=== PATIENT | male | born 1975 | race African-American/Black ===

== ENCOUNTER 2017-12-30 09:08 | Emergency (ER) | payer MEDICAID, OTHER ==
[~2017-12-30] VITALS: Ht 167.6 cm; Wt 91.0 kg
[2017-12-30 11:00] VITALS: BP 141/97
== END 2017-12-30 11:02 | disposition home or self-care (01) ==
LOC: ER 10:38
DX: M77.8 Other enthesopathies, not elsewhere classified (principal); M79.631 Pain in right forearm; X50.0XXA Overexertion from strenuous movement or load, initial encounter; Y93.89 Activity, other specified; Y92.89 Other specified places as the place of occurrence of the external cause; Y99.0 Civilian activity done for income or pay
CPT/HCPCS: 73030; 99284

== ENCOUNTER 2021-09-04 04:05 | Emergency (ER) | payer MEDICAID, OTHER ==
[~2021-09-04] VITALS: Ht 170.2 cm; Wt 95.0 kg
[2021-09-04 04:58] VITALS: BP 168/88
[2021-09-04] MEDS ORDERED: NAPR-681 PO (06:58)
== END 2021-09-04 07:17 | disposition home or self-care (01) ==
LOC: ER 04:38
DX: M79.672 Pain in left foot (principal); M79.89 Other specified soft tissue disorders
CPT/HCPCS: 73630; 93971; 99284

== ENCOUNTER 2023-03-04 23:43 | Emergency (ER) | payer MEDICAID ==
[~2023-03-04] VITALS: Ht 170.2 cm; Wt 115.0 kg
[~2023-03-04 23:43] MED LIST: NAPR-681 PO
[2023-03-05 00:04] VITALS: BP 183/110; O2SAT 98
[2023-03-05] MEDS ORDERED: AMOX-494 MT (00:31)
[2023-03-05] MEDS ORDERED: IBUP-2029 MT (00:31)
[2023-03-05 01:01] VITALS: PULSE 97; RESP 18; TEMP 98.4
== END 2023-03-05 01:02 | disposition home or self-care (01) ==
LOC: ER 23:43
DX: H66.92 Otitis media, unspecified, left ear (principal)
CPT/HCPCS: 99283

== ENCOUNTER 2024-06-21 10:28 | Emergency (ER) | payer MEDICAID ==
[~2024-06-21] VITALS: Ht 170.2 cm; Wt 106.0 kg
[~2024-06-21 10:28] MED LIST changes: +AMOX-494 MT; +IBUP-2029 MT
[2024-06-21 10:43] VITALS: O2SAT 98
[2024-06-21 10:44] VITALS: BP 175/82; PULSE 93; RESP 18; TEMP 98.3; O2SAT 98
[2024-06-21] MEDS ORDERED: ACETAMINOPHEN 325MG TABLET PO ONE (13:30)
[2024-06-21] MEDS ORDERED: TOPUD PO (14:20)
== END 2024-06-21 15:24 | disposition home or self-care (01) ==
LOC: ER 10:28
DX: M79.18 Myalgia, other site (principal); W19.XXXA Unspecified fall, initial encounter; Y93.89 Activity, other specified; Y92.89 Other specified places as the place of occurrence of the external cause; Y99.8 Other external cause status
CPT/HCPCS: 72100; 73560; 99284

== ENCOUNTER 2024-06-29 09:10 | Emergency (ER) | payer MEDICAID, OTHER ==
[~2024-06-29] VITALS: Ht 167.6 cm; Wt 110.0 kg
[~2024-06-29 09:10] MED LIST changes: +TOPUD PO
[2024-06-29 09:46] VITALS: O2SAT 99
[2024-06-29] MEDS ORDERED: IBUP-2029 MT (11:14)
[2024-06-29] MEDS ORDERED: METH-773 MT (11:14)
[2024-06-29] MEDS: IBUPROFEN 800MG TABLET PO ONE (11:35)
[2024-06-29 12:13] VITALS: BP 160/115; PULSE 82; RESP 18; TEMP 36.83628; O2SAT 99
== END 2024-06-29 12:14 | disposition home or self-care (01) ==
LOC: ER 09:21
DX: M54.50 Low back pain, unspecified (principal)
CPT/HCPCS: 99285